=== PATIENT | female | born 1990 | race Hispanic/Latino ===

== ENCOUNTER → 2020-04-07 | Outpatient (CLI) | payer MEDICAID | LOC: DAH 10:00 → EDSTATUS 04-10 08:50 | PROVIDERS: ATTEND Internal Medicine Gastroenterology | DX: Z01.818 Encounter for other preprocedural examination (principal); R12 Heartburn; R07.9 Chest pain, unspecified; Z11.59 Encounter for screening for other viral diseases | CPT/HCPCS: 36415; U0003 ==